=== PATIENT | male | born 1970 | race Two or more races ===

== ENCOUNTER 2017-11-06 13:46 | Emergency (ER) | payer OTHER ==
[2017-11-06 13:51] VITALS: BP 144/84; PULSE 91; TEMP 98.1; BMI 28.3
--- NOTE | 2017-11-06 14:32 | PDOC ---
History of Present Illness - General Chief Complaint: Rash Stated Complaint: ALLERGIC REACTION Time Seen by Provider: 11/06/17 14:23 History Source: Patient - History of Present Illness Timing/Duration: reports: other Location: reports: other (chest/back) Past History - Past Medical History Allergies/Adverse Reactions: Allergies Allergy/AdvReac Type Severity Reaction Status Date / Time No Known Allergies Allergy Verified 11/06/17 13:51 Home Medications: Ambulatory Orders Calcium Carbonate [Calcium] 600 mg PO DAILY 04/07/12 Folic Acid - 1 mg PO DAILY 04/07/12 Mycophenolate Mofetil 500 mg PO BID 04/07/12 predniSONE [Deltasone -] 7 mg PO DAILY 04/07/12 Albuterol 0.083% Nebulizer Martina [Ventolin 0.083% Nebulizer Soln -] 1 neb NEB QID #60 vial 04/08/12 metFORMIN HCL [Glucophage -] 500 mg PO BID #60 tablet 04/08/12 Calcium Carbonate/Vitamin D3 [Vitamin D-3 400 Units Tablet] 1 each PO DAILY Valacyclovir HCl [Valtrex] 1,000 mg PO TID #21 tablet 11/06/17 Anemia: No Asthma: No Cancer: No COPD: No Diabetes: Yes (steroid-induced) - Surgical History Abdominal Surgery: No Appendectomy: No Cardiac Surgery: No - Suicide/Smoking/Psychosocial Hx Smoking Status: No Smoking History: Never smoked Years of Tobacco Use: 0 Number of Cigarettes Smoked Daily: 0 Hx Alcohol Use: No Drug/Substance Use Hx: No Review of Systems - Review of Systems Constitutional: No: Chills, Fever Integumentary: Yes: Pruritus, Rash *Physical Exam - Vital Signs Last Vital Signs Temp Pulse Resp BP Pulse Ox 98.1 F 91 H 18 144/84 99 11/06/17 13:49 11/06/17 13:49 11/06/17 13:49 11/06/17 13:49 11/06/17 13:49 - Physical Exam General Appearance: Yes: Appropriately Dressed. No: Apparent Distress HEENT: positive: Normal Voice Neck: positive: Supple Respiratory/Chest: positive: Other (vesicular lesions to R upper chest that extends to R upper back following T5 dermatome, does not cross midline). negative: Respiratory Distress Integumentary: positive: Dry, Warm Neurologic: positive: Fully Oriented, Alert, Normal Mood/Affect Medical Decision Making - Medical Decision Making 11/06/17 14:31 47-year-old male, no significant history here with pruritic rash to chest. Patient states he developed rash several days ago, located to right side of chest and radiates to her back. No fever or chills. No sick contacts or recent travel. see exam Uncomplicated shingles -dc w/ valtrex and pain control as needed -contact precautions given *DC/Admit/Observation/Transfer Diagnosis at time of Disposition: Shingles Qualifiers: Herpes zoster complications: without complications Qualified Code(s): B02.9 - Zoster without complications - Discharge Dispostion Disposition: HOME Condition at time of disposition: Good - Prescriptions Prescriptions: Valacyclovir HCl [Valtrex] 1,000 mg PO TID #21 tablet - Referrals Referrals: Thalia Jackson [Primary Care Provider] - - Patient Instructions Printed Discharge Instructions: Shingles Additional Instructions: You have shingles which is a re-activation of the virus that causes chickenpox in childhood. This condition is highly contagious, especially to individuals who have not yet had chickenpox or was not yet received the varicella vaccine. You also need to make sure you stay away from individuals. This condition is no longer contagious when the lesions have crusted over. In the meantime, you should keep the lesions covered and wash your hands frequently. Take medication as prescribed. If pain develops take Motrin or Tylenol as directed - Post Discharge Activity Forms/Work/School Notes: Back to Work
== END 2017-11-06 14:34 | disposition home or self-care (01) ==
LOC: JERFT 13:46
DX: B02.9 Zoster without complications (principal); E09.9 Drug or chemical induced diabetes mellitus without complications; T38.0X5A Adverse effect of glucocorticoids and synthetic analogues, initial encounter; Y92.89 Other specified places as the place of occurrence of the external cause; Z79.84 Long term (current) use of oral hypoglycemic drugs
CPT/HCPCS: 99281-25

== ENCOUNTER 2018-01-24 15:22 | Emergency (ER) | payer OTHER ==
[2018-01-24 15:39] VITALS: BP 152/93; PULSE 98; TEMP 98.3; BMI 62.6
[2018-01-24] MEDS ORDERED: PSEUDOEPHEDRINE HCL 60 MG TABLET PO STA (16:00)
[2018-01-24] MEDS ORDERED: PSEUDOEPHEDRINE HCL 60 MG TABLET ONE (16:03)
--- NOTE | 2018-01-24 16:07 | PDOC ---
History of Present Illness - General Chief Complaint: Sore Throat Stated Complaint: SORE THROAT,EAR PROBLEM Time Seen by Provider: 01/24/18 15:56 - History of Present Illness Initial Comments: 01/24/18 16:04 47-year-old male with a past medical history significant for sarcoidosis he takes methotrexate and folic acid presents for evaluation of sore throat and ear congestion and intermittent cough without fever 7 days Past History - Past Medical History Allergies/Adverse Reactions: Allergies Allergy/AdvReac Type Severity Reaction Status Date / Time No Known Allergies Allergy Verified 01/24/18 15:37 Home Medications: Ambulatory Orders Calcium Carbonate [Calcium] 600 mg PO DAILY 04/07/12 Folic Acid - 1 mg PO DAILY 04/07/12 Mycophenolate Mofetil 500 mg PO BID 04/07/12 predniSONE [Deltasone -] 7 mg PO DAILY 04/07/12 Albuterol 0.083% Nebulizer Martina [Ventolin 0.083% Nebulizer Soln -] 1 neb NEB QID #60 vial 04/08/12 metFORMIN HCL [Glucophage -] 500 mg PO BID #60 tablet 04/08/12 Calcium Carbonate/Vitamin D3 [Vitamin D-3 400 Units Tablet] 1 each PO DAILY Anemia: No Asthma: No Cancer: No COPD: No Diabetes: Yes (steroid-induced) - Surgical History Abdominal Surgery: No Appendectomy: No Cardiac Surgery: No - Suicide/Smoking/Psychosocial Hx Smoking Status: No Smoking History: Never smoked Years of Tobacco Use: 0 Number of Cigarettes Smoked Daily: 0 Hx Alcohol Use: No Drug/Substance Use Hx: No Review of Systems - Review of Systems Constitutional: No: Fever HEENTM: Yes: Hearing Loss, Throat Pain. No: Nose Congestion Respiratory: Yes: Cough *Physical Exam - Vital Signs Last Vital Signs Temp Pulse Resp BP Pulse Ox 98.3 F 98 H 18 152/93 100 01/24/18 15:37 01/24/18 15:37 01/24/18 15:37 01/24/18 15:37 01/24/18 15:37 - Physical Exam Comments: 01/24/18 16:06 HEAD: NC/AT EYES: Conjuntiva clear Ears: Canals and TM's normal mild buldging NOSE: No d/c THROAT: Moist mucous membrances, oral pharanx clear, uvula midline NECK: Supple without adenopathy CARDIAC: S1 S2 LUNGS: CTA Full and Equal breath sounds ABDOMEN: Soft NT ND MS: Full ROM in all joints without edema NEUROLOGIC: No gross sensory or motor deficits, NVID SKIN: Normal color and temperature no lesions or rashes Moderate Sedation - Procedure Monitoring Vital Signs: Procedure Monitoring Vital Signs Temperature 98.3 F 01/24/18 15:37 Pulse Rate 98 H 01/24/18 15:37 Respiratory Rate 18 01/24/18 15:37 Blood Pressure 152/93 01/24/18 15:37 O2 Sat by Pulse Oximetry (%) 100 01/24/18 15:37 *DC/Admit/Observation/Transfer Diagnosis at time of Disposition: URI (upper respiratory infection) - Discharge Dispostion Disposition: HOME Condition at time of disposition: Stable Decision to Admit order: No - Referrals Referrals: Thalia Jcakson [Primary Care Provider] - - Patient Instructions Printed Discharge Instructions: DI for Viral Upper Respiratory Infection -- Adult Additional Instructions: Current to the emergency room should symptoms worsen or go unresolved. Please follow-up with your primary care physician in one to 2 days for further evaluation and treatment options. - Post Discharge Activity
== END 2018-01-24 16:25 | disposition home or self-care (01) ==
LOC: JERFT 15:22
DX: J06.9 Acute upper respiratory infection, unspecified (principal); D86.9 Sarcoidosis, unspecified
CPT/HCPCS: 99281-25